=== PATIENT | female | born 1970 | race Caucasian/White ===

== ENCOUNTER 2021-09-15 10:06 | Inpatient (IN) | payer MEDICAID ==
[~2021-09-15] VITALS: Ht 160 cm; Wt 65.9 kg
[~2021-09-15 10:06] MED LIST: ALBU18HF2 INH; TRIA15CR62 TP; [UNRECOGNIZED DRUG - OTHER] SQ
[2021-09-15] MEDS ORDERED: normal saline 1000ML IV soln IV ONE (10:25)
[2021-09-15] MEDS ORDERED: morphine 4 MG/ML inj SYRINge IV ONE (10:40)
[2021-09-15] MEDS ORDERED: iohexol 300mg/ml 100ml inj. ONE (10:48)
[2021-09-15 10:59] LABS: BASOPHILS % (AUTO) 0.3 % (0-1); EOSINOPHILS # (AUTO) 0.4 X10'3 (0-0.9); EOSINOPHILS % (AUTO) 2.7 % (0-6); HEMATOCRIT 40.2 % (35.0-45.0); HEMOGLOBIN 13.6 g/dl (12.0-16.0); LYMPHOCYTES # (AUTO) 1.1 X10'3 (1.1-4.8); LYMPHOCYTES % (AUTO) 7.9 % (21-51); MEAN CORPUSCULAR HEMOGLOBIN 33.3 PG (27.0-31.0); MEAN CORPUSCULAR HGB CONC 33.8 g/dL (33.0-36.5); MEAN CORPUSCULAR VOLUME 98.5 FL (78-98); MEAN PLATELET VOLUME 6.5 FL (7.4-10.4); MONOCYTES # (AUTO) 1.4 X10'3 (0-0.9); MONOCYTES % (AUTO) 10.8 % (2-12); NEUTROPHILS # (AUTO) 10.5 X10'3 (1.8-7.7); NEUTROPHILS % (AUTO) 78.3 % (42-75); PLATELET COUNT 468 X10'3 (140-440); RED BLOOD COUNT 4.08 X10'6 (4.20-5.60); RED CELL DISTRIBUTION WIDTH 13.3 % (11.5-14.5); WHITE BLOOD COUNT 13.4 X10'3 (4.5-11.0)
[2021-09-15 11:22] LABS: ALBUMIN 1.7 G/DL (3.4-5.0); BILIRUBIN,TOTAL 0.2 MG/DL (0.1-1.0); CALCIUM 8.2 MG/DL (8.5-10.1); CHLORIDE 102 MMOL/L (99-107); GLUCOSE 137 MG/DL (70-104); MAGNESIUM 1.8 MG/DL (1.5-2.4); POTASSIUM 3.7 MMOL/L (3.5-5.1); SODIUM 136 MMOL/L (135-145)
[2021-09-15 11:23] LABS: ALANINE AMINOTRANSFERASE 26 U/L (12-78); ALBUMIN/GLOBULIN RATIO 0.3 (1.1-1.5); ALKALINE PHOSPHATASE 93 IU/L (46-116); ASPARTATE AMINO TRANSFERASE 26 U/L (10-37)
[2021-09-15 11:24] LABS: ANION GAP 10 (8-16); TOTAL CARBON DIOXIDE 23.8 MMOL/L (24-32)
[2021-09-15 11:29] LABS: BLOOD UREA NITROGEN 1 MG/DL (7-18); CREATININE 0.55 MG/DL (0.40-0.90); eGFR > 90 ML/MIN
[2021-09-15 11:30] LABS: BUN/CREATININE RATIO 1.8 (6.6-38.0)
[2021-09-15 11:37] LABS: CLARITY,URINE CLEAR (Clear); GLUCOSE, URINE NEGATIVE (Neg); KETONES,URINE NEGATIVE (Neg); LEUKOCYTE ESTERASE ,URINE NEGATIVE (Neg); NITRITES, URINE NEGATIVE (Neg); OCCULT BLOOD,URINE LARGE (Neg); PH,URINE 5.5 (4.8-8.0); PROTEIN,URINE NEGATIVE (Neg); UROBILINOGEN,URINE 0.2 E.U/dL (0.2-1.0)
[2021-09-15 11:38] LABS: URINE HCG NEGATIVE (NEG)
[2021-09-15 11:41] LABS: COLOR,URINE STRAW (Yellow); UA COLLECTION TYPE NON-SPECIFIED
[2021-09-15 11:42] LABS: BACTERIA,URINE FEW /HPF (Neg); MUCUS STRANDS FEW /LPF (Neg); RBC,URINE 20-50 /HPF (0-2); SQUAMOUS EPITHELIAL CELL,UR FEW /LPF (FEW); WBC,URINE 0-4 /HPF (0-4)
[2021-09-15] MEDS ORDERED: vancomycin/NS 1 GM ADD-VANTAGE 250 ML IV ONE (11:45)
[2021-09-15] MEDS ORDERED: piperacillin/tazo 3.375gm/50ml 50 ML IV ONE (11:45)
[2021-09-15] MEDS ORDERED: bisacodyl 10mg suppository rectal RC PRN (14:25)
[2021-09-15] MEDS ORDERED: HYDROcodone/acetaminophen 10/325mg tab PO PRN (14:25)
[2021-09-15] MEDS ORDERED: acetaminophen 325mg tablet PO PRN ×2 (14:25)
[2021-09-15] MEDS ORDERED: ondansetron 4mg rapidly disintigrating tab PO PRN (14:25)
[2021-09-15] MEDS ORDERED: magnesium hydroxide 30ml (MOM) UD suspension PO PRN (14:25)
[2021-09-15] MEDS ORDERED: magnesium Cl slow-release 64mg tablet PO PRN (14:25)
[2021-09-15] MEDS ORDERED: HYDROmorphone/PF 0.2 MG/ML SYRINGE IV PRN (14:25)
[2021-09-15] MEDS ORDERED: potassium Cl 20 mEq SR tablet PO PRN ×2 (14:25)
[2021-09-15] MEDS ORDERED: magnesium 2GM in 50ml NS 50 ML IV PRN (14:25)
[2021-09-15] MEDS ORDERED: metoclopramide 5 mg/ml inj IV PRN (14:25)
[2021-09-15] MEDS ORDERED: potassium CL 10mEq/100ml bag 100 ML IV PRN (14:25)
[2021-09-15] MEDS ORDERED: magnesium 4gm in 100ml NS 100 ML IV PRN (14:25)
[2021-09-15] MEDS: normal saline 1000ml 1,000 ML IV SCH ×2 (14:25→23:23)
[2021-09-15] MEDS ORDERED: HYDROcodone/acetaminophen 5mg/325mg tablet PO PRN (14:25)
[2021-09-15] MEDS ORDERED: mag hydrox/Alum hydrox/simeth 30ml oral suspension PO PRN (14:25)
[2021-09-15] MEDS ORDERED: HYDROmorphone inj. 0.5 MG/0.5 ML DISP.SYRIN IV PRN (14:25)
[2021-09-15] MEDS ORDERED: ondansetron/PF 4mg/2ml inj IV PRN (14:25)
[2021-09-15] MEDS ORDERED: tetanus & diphtheria toxoid (Td) vaccine 0.5ml IMVAC ONE (15:30)
--- NOTE | 2021-09-15 15:41 | NUR ---
tried to call report, RN at lunch
[2021-09-15] MEDS ORDERED: piperacillin/tazo 3.375gm/50ml 50 ML IV SCH (16:00)
--- NOTE | 2021-09-15 16:14 | NUR ---
tried to call for report to ER no answer
--- NOTE | 2021-09-15 16:31 | NUR ---
pt states she has had a Tetnus shot within the last five years
[2021-09-15] MEDS ORDERED: ipratropium/albuterol 3ml nebule NEB PRN (17:55)
[2021-09-15] MEDS: predniSONE 20 mg tablet PO SCH (18:12)
--- NOTE | 2021-09-15 18:15 | NUR ---
patient seen by DR Devine EKG ordered and prednisone to be given tonight will continue to monitor
--- NOTE | 2021-09-15 18:31 | NUR ---
Problems reprioritized. Patient report given, questions answered & plan of care reviewed with duran MORENO.
[2021-09-15 18:40] VITALS: BP 133/77
[2021-09-15] MEDS: ipratropium/albuterol 3ml nebule NEB SCH ×2 (19:00→23:00)
[2021-09-15] MEDS: heparin, porcine 5000 units/ml vial SQ SCH (19:47)
[2021-09-15] MEDS: K and/or MAG REPLACEMENT MC SCH (19:48)
[2021-09-15] MEDS: docusate sod 100mg capsule PO SCH (19:48)
[2021-09-15 20:00] VITALS: BP 141/58
[2021-09-15] MEDS: piperacillin/tazo 3.375gm/50ml 50 ML IV SCH (22:26)
[2021-09-15] MEDS: vancomycin/NS 1 GM ADD-VANTAGE 250 ML IV SCH (23:23)
[2021-09-15 23:36] VITALS: BP 121/58
[2021-09-16] MEDS: temazepam 15mg capsule PO PRN (01:14)
[2021-09-16] MEDS: ipratropium/albuterol 3ml nebule NEB SCH ×5 (03:00→22:39)
[2021-09-16] MEDS: piperacillin/tazo 3.375gm/50ml 50 ML IV SCH ×3 (03:38→19:52)
[2021-09-16 06:01] LABS: BASOPHILS % (AUTO) 0.1 % (0-1); EOSINOPHILS % (AUTO) 0.1 % (0-6); HEMATOCRIT 32.3 % (35.0-45.0); HEMOGLOBIN 10.9 g/dl (12.0-16.0); LYMPHOCYTES # (AUTO) 0.6 X10'3 (1.1-4.8); LYMPHOCYTES % (AUTO) 7.2 % (21-51); MEAN CORPUSCULAR HEMOGLOBIN 32.9 PG (27.0-31.0); MEAN CORPUSCULAR HGB CONC 33.6 g/dL (33.0-36.5); MEAN PLATELET VOLUME 6.3 FL (7.4-10.4); MONOCYTES # (AUTO) 0.4 X10'3 (0-0.9); MONOCYTES % (AUTO) 4.3 % (2-12); NEUTROPHILS # (AUTO) 7.8 X10'3 (1.8-7.7); NEUTROPHILS % (AUTO) 88.3 % (42-75); PLATELET COUNT 351 X10'3 (140-440); RED CELL DISTRIBUTION WIDTH 13.4 % (11.5-14.5); WHITE BLOOD COUNT 8.8 X10'3 (4.5-11.0)
[2021-09-16 06:20] LABS: ALANINE AMINOTRANSFERASE 26 U/L (12-78); ALBUMIN 1.3 G/DL (3.4-5.0); ALBUMIN/GLOBULIN RATIO 0.3 (1.1-1.5); ALKALINE PHOSPHATASE 92 IU/L (46-116); ANION GAP 6 (8-16); ASPARTATE AMINO TRANSFERASE 33 U/L (10-37); BILIRUBIN,TOTAL 0.2 MG/DL (0.1-1.0); BLOOD UREA NITROGEN 2 MG/DL (7-18); BUN/CREATININE RATIO 5.1 (6.6-38.0); CALCIUM 6.9 MG/DL (8.5-10.1); CHLORIDE 109 MMOL/L (99-107); CREATININE 0.39 MG/DL (0.40-0.90); GLUCOSE 114 MG/DL (70-104); MAGNESIUM 1.7 MG/DL (1.5-2.4); POTASSIUM 3.6 MMOL/L (3.5-5.1); SODIUM 139 MMOL/L (135-145); TOTAL CARBON DIOXIDE 23.7 MMOL/L (24-32); TOTAL PROTEIN 6.5 G/DL (6.4-8.2); eGFR > 90 ML/MIN
--- NOTE | 2021-09-16 06:34 | NUR ---
Problems reprioritized. Patient report given, questions answered & plan of care reviewed with MARCELL MORENO.
[2021-09-16] MEDS: docusate sod 100mg capsule PO SCH ×2 (07:41→19:53)
[2021-09-16] MEDS: predniSONE 20 mg tablet PO SCH (07:41)
[2021-09-16] MEDS: heparin, porcine 5000 units/ml vial SQ SCH ×2 (07:41→19:54)
[2021-09-16] MEDS: nicotine 14mg patch - 24hr TD SCH (07:42)
[2021-09-16 08:00] VITALS: BP 146/95
[2021-09-16] MEDS: K and/or MAG REPLACEMENT MC SCH ×2 (08:00→19:54)
[2021-09-16] MEDS ORDERED: LIDOcaine 1% (10mg/ml)w/preservative inj. 20ml MDV ONE (10:20)
[2021-09-16] MEDS: normal saline 1000ml 1,000 ML IV SCH (10:25)
[2021-09-16 11:00] VITALS: BP 160/86
[2021-09-16] MEDS: vancomycin/NS 1 GM ADD-VANTAGE 250 ML IV SCH (12:32)
--- NOTE | 2021-09-16 16:51 | NUR ---
PAGER ID: [phone] MESSAGE: [phone]. Patient drinking plenty PO fluids, does she still need IVF? Caroline MORENO 1978
--- NOTE | 2021-09-16 17:55 | NUR ---
Problems reprioritized. Patient report given, questions answered & plan of care reviewed with Nicholas MORENO.
--- NOTE | 2021-09-16 18:20 | NUR ---
Patient in room [facility] 346. I have received report from MARCELL MORENO and had the opportunity to ask questions and assume patient care.
[2021-09-16 20:00] VITALS: BP 132/72
[2021-09-16] MEDS: amLODIPine 5mg tablet PO SCH (21:00)
[2021-09-16] MEDS ORDERED: VANCOMYCIN LEVEL IV ONE (23:30)
[2021-09-17] VITALS: BP 140/74
[2021-09-17] MEDS: vancomycin/NS 1 GM ADD-VANTAGE 250 ML IV SCH ×2 (00:07→12:00)
[2021-09-17] MEDS: temazepam 15mg capsule PO PRN (00:07)
[2021-09-17] MEDS: ipratropium/albuterol 3ml nebule NEB SCH ×4 (03:00→14:46)
--- NOTE | 2021-09-17 06:24 | NUR ---
Problems reprioritized. Patient report given, questions answered & plan of care reviewed with MARCELL.
[2021-09-17 07:01] LABS: BASOPHILS % (AUTO) 0.4 % (0-1); EOSINOPHILS # (AUTO) 0.1 X10'3 (0-0.9); EOSINOPHILS % (AUTO) 1.1 % (0-6); LYMPHOCYTES # (AUTO) 1.2 X10'3 (1.1-4.8); LYMPHOCYTES % (AUTO) 13.2 % (21-51); MEAN CORPUSCULAR HEMOGLOBIN 33.5 PG (27.0-31.0); MEAN CORPUSCULAR HGB CONC 34.4 g/dL (33.0-36.5); MEAN CORPUSCULAR VOLUME 97.3 FL (78-98); MEAN PLATELET VOLUME 6.7 FL (7.4-10.4); MONOCYTES # (AUTO) 0.9 X10'3 (0-0.9); MONOCYTES % (AUTO) 10.4 % (2-12); NEUTROPHILS # (AUTO) 6.8 X10'3 (1.8-7.7); NEUTROPHILS % (AUTO) 74.9 % (42-75); PLATELET COUNT 370 X10'3 (140-440); RED BLOOD COUNT 3.29 X10'6 (4.20-5.60); RED CELL DISTRIBUTION WIDTH 13.4 % (11.5-14.5); WHITE BLOOD COUNT 9.1 X10'3 (4.5-11.0)
[2021-09-17 07:11] LABS: ALANINE AMINOTRANSFERASE 25 U/L (12-78); ALBUMIN 1.4 G/DL (3.4-5.0); ALBUMIN/GLOBULIN RATIO 0.3 (1.1-1.5); ALKALINE PHOSPHATASE 79 IU/L (46-116); ANION GAP 6 (8-16); ASPARTATE AMINO TRANSFERASE 36 U/L (10-37); BILIRUBIN,TOTAL 0.2 MG/DL (0.1-1.0); BLOOD UREA NITROGEN 4 MG/DL (7-18); BUN/CREATININE RATIO 7.3 (6.6-38.0); CALCIUM 7.7 MG/DL (8.5-10.1); CHLORIDE 108 MMOL/L (99-107); CREATININE 0.55 MG/DL (0.40-0.90); GLUCOSE 85 MG/DL (70-104); MAGNESIUM 1.9 MG/DL (1.5-2.4); POTASSIUM 3.6 MMOL/L (3.5-5.1); SODIUM 140 MMOL/L (135-145); TOTAL CARBON DIOXIDE 26.5 MMOL/L (24-32); TOTAL PROTEIN 6.6 G/DL (6.4-8.2); eGFR > 90 ML/MIN
[2021-09-17] MEDS: amLODIPine 5mg tablet PO SCH (07:49)
[2021-09-17] MEDS: nicotine 14mg patch - 24hr TD SCH (07:50)
[2021-09-17] MEDS: heparin, porcine 5000 units/ml vial SQ SCH (07:50)
[2021-09-17] MEDS ORDERED: predniSONE 20 mg tablet PO SCH (08:00)
[2021-09-17] MEDS: K and/or MAG REPLACEMENT MC SCH (08:00)
[2021-09-17 08:36] VITALS: BP 148/81
[2021-09-17 11:53] VITALS: BP 140/78
[2021-09-17] MEDS ORDERED: PRED20TA PO (12:59)
[2021-09-17] MEDS ORDERED: DOXY-243 PO (12:59)
[2021-09-17] MEDS ORDERED: NICO-631 TD (12:59)
[2021-09-17] MEDS ORDERED: NOR5T PO (13:00)
--- NOTE | 2021-09-17 13:53 | NUR ---
Discharge paperwork reviewed with patient. Belongings sent with patient. IV removed, catheter tip intact. Patient free from injuries.
--- NOTE | 2021-09-17 16:19 | NUR ---
PAGER ID: [phone] MESSAGE: [phone]. Pharmacy called saying doxycycline is only approved for acne and if you would like to prescribe something else. Caroline MORENO [id number]
--- NOTE | 2021-09-17 16:21 | NUR ---
Attempted to call Arsenio olmedo at [facility] pharmacy regarding doxycycline medication. I called twice and was sent to their automated voice system both times. Will attempt to call again.
--- NOTE | 2021-09-17 16:26 | NUR ---
Spoke to Jane regarding doxycycline at [facility], she is aware of the situation.
[2021-09-18] MEDS ORDERED: VANCOmycin 1250MG/NS 250ml Bag 250 ML IV SCH
[2021-09-19] MEDS ORDERED: VANCOMYCIN LEVEL IV ONE (11:30)
== END 2021-09-17 14:41 | disposition home or self-care (01) | DRG 385 ==
LOC: ER 10:06 → ED HOLD 14:29 → SUR 3N 16:40
PROVIDERS: ADMIT Family Medicine; ATTEND Family Medicine
PROC: BW241ZZ Computerized Tomography (CT Scan) of Chest and Abdomen using Low Osmolar Contrast (ICD-10-PCS; principal; 2021-09-15)
DX: N61.1 Abscess of the breast and nipple (principal); J45.901 Unspecified asthma with (acute) exacerbation; G89.29 Other chronic pain; M54.9 Dorsalgia, unspecified; R00.2 Palpitations; F17.210 Nicotine dependence, cigarettes, uncomplicated; Z20.822 Contact with and (suspected) exposure to COVID-19; L30.9 Dermatitis, unspecified; I10 Essential (primary) hypertension; Z71.6 Tobacco abuse counseling; Z88.2 Allergy status to sulfonamides; Z88.8 Allergy status to other drugs, medicaments and biological substances; Z90.49 Acquired absence of other specified parts of digestive tract
CPT/HCPCS: 36415; 71260; 76642; 80053; 80202; 81001; 81025; 83605; 83735; 84145; 84443; 85025; 85610; 87040; 87081; 87635; 90715; 93005; 94640; 94760; 96361; 96365; 96368; 96375; 99285; C9803; G0378; J1644; J2270; J2543; J3370; J3490; J7030; J7512; Q9967

== ENCOUNTER 2022-05-30 15:32 | Outpatient (CLI) | payer MEDICAID ==
[~2022-05-30] VITALS: Ht 160 cm; Wt 55.3 kg
[~2022-05-30 15:32] MED LIST changes: +NICO-631 TD; +NOR5T PO; +PRED20TA PO; -TRIA15CR62 TP; -[UNRECOGNIZED DRUG - OTHER] SQ
[2022-05-30] MEDS ORDERED: albuterol 2.5 MG/3 ML nebule NEB ONE (16:00)
== END 2022-05-30 23:59 | disposition home or self-care (01) ==
LOC: RT 15:32
PROVIDERS: ATTEND Family Medicine
DX: J45.998 Other asthma (principal); J44.9 Chronic obstructive pulmonary disease, unspecified
CPT/HCPCS: 94060; 94760

== ENCOUNTER 2022-10-03 10:43 | Day surgery (SDC) | payer MEDICAID ==
[2022-09-30 15:15] LABS: BASOPHILS % (AUTO) 0.6 % (0-1); EOSINOPHILS # (AUTO) 0.4 X10'3 (0-0.9); EOSINOPHILS % (AUTO) 5.1 % (0-6); LYMPHOCYTES # (AUTO) 0.9 X10'3 (1.1-4.8); LYMPHOCYTES % (AUTO) 11.6 % (21-51); MEAN CORPUSCULAR HEMOGLOBIN 33.1 PG (27.0-31.0); MEAN CORPUSCULAR HGB CONC 33.3 g/dL (33.0-36.5); MEAN CORPUSCULAR VOLUME 99.5 FL (78-98); MEAN PLATELET VOLUME 7.5 FL (7.4-10.4); MONOCYTES % (AUTO) 13.1 % (2-12); NEUTROPHILS # (AUTO) 5.2 X10'3 (1.8-7.7); NEUTROPHILS % (AUTO) 69.6 % (42-75); PRE OP HEMATOCRIT 44.8 % (35.0-45.0); PRE OP HEMOGLOBIN 14.9 g/dL (12.0-16.0); PRE OP PLATELET COUNT 284 X10'3 (140-440); RED CELL DISTRIBUTION WIDTH 14.2 % (11.5-14.5)
[2022-09-30 15:19] LABS: ALBUMIN 3.3 G/DL (3.4-5.0); ALBUMIN/GLOBULIN RATIO 0.7 (1.1-1.5); ALKALINE PHOSPHATASE 88 IU/L (46-116); BLOOD UREA NITROGEN 4 MG/DL (7-18); BUN/CREATININE RATIO 6.5 (10.0-20.0); CALCIUM 9.1 MG/DL (8.5-10.1); CHLORIDE 103 MMOL/L (99-107); CREATININE 0.62 MG/DL (0.40-0.90); PRE OP ALT 52 U/L (30-65); PRE OP ANION GAP 8 (8-16); PRE OP AST 67 U/L (10-37); PRE OP BILIRUB, TOTAL 0.3 MG/DL (0.0-1.0); PRE OP GLUCOSE 94 MG/DL (70-104); PRE OP SODIUM 138 MMOL/L (135-145); TOTAL CARBON DIOXIDE 27.5 MMOL/L (24-32); TOTAL PROTEIN 8.2 G/DL (6.4-8.2); eGFR > 90 ML/MIN
[2022-10-03] VITALS (11 sets, daily range): BP systolic 117–152; BP diastolic 63–92
[~2022-10-03] VITALS: Ht 160 cm; Wt 56.7 kg
[~2022-10-03 10:43] MED LIST changes: +BUDE10.26 PO; -NICO-631 TD; -NOR5T PO; -PRED20TA PO; +RUXO60CR TOP; +cefazolin 2gm/D5W 100mL 100 ML IV ONE; +famotidine 20mg tablet PO ONE; +ringers solution, lacted 1,000 ML IV SCH
--- NOTE | 2022-10-03 11:51 | NUR ---
PATIENTS SPOUSE PASSED OF CANCER November. PATIENT LOST WEIGHT DURING THE GRIEF 10-15 LBS AND REGAINED 5 OF IT. Addendum: 10/03/22 at 1153 by Buddy Sheridan RN, RN Amended: Links added.
[2022-10-03] MEDS ORDERED: BUPIVAcaine/PF 2.5mg/ml (0.25%) 10ml vial ONE ×2 (12:51→13:23)
[2022-10-03] MEDS ORDERED: methylene blue (5mg/ml) 50mg/10ml ampul IV ONE (12:51)
[2022-10-03] MEDS ORDERED: dexamethasone sod phosphate 10mg/ml inj ONE (13:01)
[2022-10-03] MEDS ORDERED: dexmedetomidine 200mcg/2ml inj. IV ONE (13:01)
[2022-10-03] MEDS ORDERED: sevoflurane 250ml liquid IH ONE (13:01)
[2022-10-03] MEDS ORDERED: propofol inj 20 ML IV ONE (13:19)
[2022-10-03] MEDS ORDERED: ondansetron/PF 4mg/2ml inj ONE (13:19)
[2022-10-03] MEDS ORDERED: LIDOcaine 2% (20mg/ml) 5ml vial ONE (13:19)
[2022-10-03] MEDS ORDERED: fentaNYL/PF 50MCG/1 ML 2ML syringe ONE ×3 (13:20→14:32)
[2022-10-03] MEDS ORDERED: MIDAZolam 1 MG/ML 5ML VIAL ONE (13:23)
[2022-10-03] MEDS ORDERED: acetaminophen 1,000mg/100ml IV 100 ML IV ONE (13:54)
[2022-10-03] MEDS ORDERED: HYDROmorphone 1 mg/ml syringe ONE (14:11)
[2022-10-03] MEDS ORDERED: ketorolac trometh. 30mg/ml inj. ONE (14:24)
[2022-10-03] MEDS ORDERED: HYDROmorphone/PF 0.2 MG/ML SYRINGE IV PRN ×2 (14:25)
[2022-10-03] MEDS ORDERED: hydrALAZINE 20mg/ml inj. IV PRN (14:25)
[2022-10-03] MEDS ORDERED: ringers solution, lacted 1,000 ML IV SCH (14:25)
[2022-10-03] MEDS ORDERED: labetalol 20mg/4ml (5mg/ml) syringe IV PRN (14:25)
[2022-10-03] MEDS ORDERED: morphine 2 MG/ML inj. syringe IV PRN (14:25)
[2022-10-03] MEDS ORDERED: ondansetron/PF 4mg/2ml inj IV PRN (14:25)
[2022-10-03] MEDS ORDERED: morphine 4 MG/ML inj SYRINge IV PRN (14:25)
--- NOTE | 2022-10-03 15:35 | NUR ---
Received from OR via JACKIE IN STABLE CONDITION , accompanied by Anesthesiologist and RUG CUTTER HELPER report given by RUG CUTTER HELPER AND Anesthesiolgist. Addendum: 10/03/22 at 1555 by Sulma Moncada RN Amended: Links added.
--- NOTE | 2022-10-03 17:15 | NUR ---
PATIENT DISCHARGED FROM PACU IN STABLE CONDITION AFTER WRITTEN AND VERBAL DISCHARGE INSTRUCTIONS GIVEN. PATIENT GAVE VERBAL UNDERSTANDING OF INSTRUCTIONS GIVEN. PATIENT LEFT FACILITY VIA WHEELCHAIR WITH RN. Addendum: 10/03/22 at 1739 by Sulma Moncada RN Amended: Links added.
== END 2022-10-03 17:15 | disposition home or self-care (01) ==
LOC: PRE-OP 10:43
PROVIDERS: ATTEND Surgery
DX: C50.412 Malignant neoplasm of upper-outer quadrant of left female breast (principal); J44.9 Chronic obstructive pulmonary disease, unspecified; F17.290 Nicotine dependence, other tobacco product, uncomplicated; Z88.2 Allergy status to sulfonamides; Z88.8 Allergy status to other drugs, medicaments and biological substances; Z79.899 Other long term (current) drug therapy; Z72.89 Other problems related to lifestyle
CPT/HCPCS: 19301; 36415; 38500; 38525; 38900; 76998; 80053; 82948; 85025; 93005; J0131; J0690; J1170; J1885; J2250; J2405; J2704; J3010; J3490; J7030; J7120; Q9968; Z7506; Z7508; Z7512; A4215; A4618; A6258; A6446; A7000; J1100

== ENCOUNTER 2022-10-10 23:55 | Emergency (ER) | payer MEDICAID ==
[~2022-10-10] VITALS: Ht 160 cm; Wt 57.4 kg
[~2022-10-10 23:55] MED LIST changes: +BUDE10.26 IH; -BUDE10.26 PO; -cefazolin 2gm/D5W 100mL 100 ML IV ONE; -famotidine 20mg tablet PO ONE; -ringers solution, lacted 1,000 ML IV SCH
[2022-10-11 00:03] VITALS: BP 136/65
[2022-10-11] MEDS ORDERED: IPRA3AMP31 NEB (13:38)
[2022-10-11] MEDS ORDERED: METO-395 PO (13:41)
== END 2022-10-11 01:50 | disposition left against medical advice (07) ==
LOC: ER 23:55
DX: N64.4 Mastodynia (principal); Z53.21 Procedure and treatment not carried out due to patient leaving prior to being seen by health care provider
CPT/HCPCS: 99281

== ENCOUNTER 2022-10-11 10:24 | Inpatient (IN) | payer MEDICAID ==
[~2022-10-11] VITALS: Ht 160 cm; Wt 56.2 kg
[2022-10-11] MEDS ORDERED: piperacillin/tazo 3.375gm/50ml 50 ML IV ONE (11:00)
[2022-10-11] MEDS ORDERED: vancomycin/NS 1 GM ADD-VANTAGE 250 ML IV ONE (11:35)
[2022-10-11] MEDS ORDERED: magnesium Cl slow-release 64mg tablet PO PRN (11:50)
[2022-10-11] MEDS ORDERED: potassium Cl 20 mEq SR tablet PO PRN (11:50)
[2022-10-11] MEDS ORDERED: mag hydrox/Alum hydrox/simeth 30ml oral suspension PO PRN (11:50)
[2022-10-11] MEDS ORDERED: acetaminophen 650mg rectal suppository RC PRN (11:50)
[2022-10-11] MEDS ORDERED: HYDROcodone/acetaminophen 10/325mg tab PO PRN (11:50)
[2022-10-11] MEDS ORDERED: bisacodyl 10mg suppository rectal RC PRN (11:50)
[2022-10-11] MEDS ORDERED: potassium Cl 40MEQ/1/2NS 520ml 520 ML IV PRN (11:50)
[2022-10-11] MEDS ORDERED: ondansetron/PF 4mg/2ml inj IV PRN (11:50)
[2022-10-11] MEDS ORDERED: magnesium 4gm in 100ml NS 100 ML IV PRN (11:50)
[2022-10-11] MEDS ORDERED: magnesium hydroxide 30ml (MOM) UD suspension PO PRN (11:50)
[2022-10-11] MEDS ORDERED: morphine 2 MG/ML inj. syringe IV PRN ×2 (11:50)
[2022-10-11] MEDS ORDERED: magnesium 2GM in 50ml NS 50 ML IV PRN (11:50)
[2022-10-11] MEDS ORDERED: acetaminophen 325mg tablet PO PRN (11:50)
[2022-10-11 12:13] LABS: BASOPHILS % (AUTO) 0.2 % (0-1); EOSINOPHILS # (AUTO) 0.1 X10'3 (0-0.9); EOSINOPHILS % (AUTO) 0.6 % (0-6); HEMATOCRIT 40.1 % (35.0-45.0); HEMOGLOBIN 13.6 g/dl (12.0-16.0); LYMPHOCYTES # (AUTO) 0.5 X10'3 (1.1-4.8); LYMPHOCYTES % (AUTO) 3.7 % (21-51); MEAN CORPUSCULAR HEMOGLOBIN 33.5 PG (27.0-31.0); MEAN CORPUSCULAR HGB CONC 33.8 g/dL (33.0-36.5); MEAN PLATELET VOLUME 7.3 FL (7.4-10.4); MONOCYTES # (AUTO) 1.7 X10'3 (0-0.9); MONOCYTES % (AUTO) 12.1 % (2-12); NEUTROPHILS % (AUTO) 83.4 % (42-75); PLATELET COUNT 317 X10'3 (140-440); RED BLOOD COUNT 4.05 X10'6 (4.20-5.60); RED CELL DISTRIBUTION WIDTH 13.8 % (11.5-14.5); WHITE BLOOD COUNT 14.4 X10'3 (4.5-11.0)
[2022-10-11] MEDS: normal saline 1000ml 1,000 ML IV SCH ×2 (13:00→21:50)
[2022-10-11 13:10] LABS: ALANINE AMINOTRANSFERASE 24 U/L (12-78); ALBUMIN 2.6 G/DL (3.4-5.0); ALBUMIN/GLOBULIN RATIO 0.5 (1.1-1.5); ALKALINE PHOSPHATASE 103 IU/L (46-116); ANION GAP 13 (8-16); ASPARTATE AMINO TRANSFERASE 19 U/L (10-37); BILIRUBIN,TOTAL 0.4 MG/DL (0.1-1.0); BLOOD UREA NITROGEN 5 MG/DL (7-18); BUN/CREATININE RATIO 8.5 (10.0-20.0); CALCIUM 9.1 MG/DL (8.5-10.1); CHLORIDE 94 MMOL/L (99-107); CREATININE 0.59 MG/DL (0.40-0.90); GLUCOSE 102 MG/DL (70-104); MAGNESIUM 2.1 MG/DL (1.5-2.4); POTASSIUM 4.1 MMOL/L (3.5-5.1); SODIUM 130 MMOL/L (135-145); TOTAL CARBON DIOXIDE 22.9 MMOL/L (24-32); TOTAL PROTEIN 7.6 G/DL (6.4-8.2); eGFR > 90 ML/MIN
[2022-10-11] MEDS ORDERED: IPRA3AMP31 NEB (13:38)
[2022-10-11] MEDS ORDERED: METO-395 PO (13:41)
[2022-10-11] MEDS: piperacillin/tazo 3.375gm/50ml 50 ML IV SCH (16:00)
--- NOTE | 2022-10-11 17:38 | NUR ---
Dr. Mcdonough here to see pt
--- NOTE | 2022-10-11 18:07 | NUR ---
Pt drsgs changed and new dr[facility] breast on. Wound culture taken per VO Dr. Jerez while here seeing pt.
--- NOTE | 2022-10-11 19:24 | NUR ---
Patient in room . I have received report from MEIR MORENO in ER and had the opportunity to ask questions and assume patient care.
[2022-10-11 20:00] VITALS: BP 154/76
[2022-10-11] MEDS: K and/or MAG REPLACEMENT MC SCH (20:00)
[2022-10-11] MEDS: docusate sod 100mg capsule PO SCH (20:00)
[2022-10-11] MEDS: heparin, porcine 5000 units/ml vial SQ SCH (21:43)
[2022-10-11 22:00] VITALS: BP 122/63
[2022-10-11] MEDS: diphenhydrAMINE 25mg capsule PO PRN (22:42)
[2022-10-12] VITALS (19 sets, daily range): BP systolic 91–189; BP diastolic 55–102
[2022-10-12] MEDS: vancomycin/NS 1 GM ADD-VANTAGE 250 ML IV SCH ×2 (00:06→13:27)
[2022-10-12] MEDS: piperacillin/tazo 3.375gm/50ml 50 ML IV SCH ×3 (00:12→18:01)
[2022-10-12 04:48] LABS: BASOPHILS % (AUTO) 0.2 % (0-1); EOSINOPHILS # (AUTO) 0.6 X10'3 (0-0.9); EOSINOPHILS % (AUTO) 6.8 % (0-6); HEMATOCRIT 35.7 % (35.0-45.0); LYMPHOCYTES # (AUTO) 0.6 X10'3 (1.1-4.8); LYMPHOCYTES % (AUTO) 6.7 % (21-51); MEAN CORPUSCULAR HEMOGLOBIN 33.2 PG (27.0-31.0); MEAN CORPUSCULAR HGB CONC 33.5 g/dL (33.0-36.5); MEAN CORPUSCULAR VOLUME 99.1 FL (78-98); MEAN PLATELET VOLUME 7.1 FL (7.4-10.4); MONOCYTES # (AUTO) 0.9 X10'3 (0-0.9); MONOCYTES % (AUTO) 11.5 % (2-12); NEUTROPHILS # (AUTO) 6.1 X10'3 (1.8-7.7); NEUTROPHILS % (AUTO) 74.8 % (42-75); PLATELET COUNT 300 X10'3 (140-440); RED CELL DISTRIBUTION WIDTH 13.4 % (11.5-14.5); WHITE BLOOD COUNT 8.2 X10'3 (4.5-11.0)
[2022-10-12 04:56] LABS: ALANINE AMINOTRANSFERASE 18 U/L (12-78); ALBUMIN 2.1 G/DL (3.4-5.0); ALBUMIN/GLOBULIN RATIO 0.5 (1.1-1.5); ALKALINE PHOSPHATASE 80 IU/L (46-116); ANION GAP 10 (8-16); ASPARTATE AMINO TRANSFERASE 12 U/L (10-37); BILIRUBIN,TOTAL 0.3 MG/DL (0.1-1.0); BLOOD UREA NITROGEN 6 MG/DL (7-18); BUN/CREATININE RATIO 12.2 (10.0-20.0); CALCIUM 8.5 MG/DL (8.5-10.1); CHLORIDE 101 MMOL/L (99-107); CHOLESTEROL 104 MG/DL (0-200); CREATININE 0.49 MG/DL (0.40-0.90); GLUCOSE 101 MG/DL (70-104); HDL CHOLESTEROL 53 MG/DL (35-60); LDL CHOLESTEROL 33 MG/DL (50-100); MAGNESIUM 2.1 MG/DL (1.5-2.4); POTASSIUM 3.4 MMOL/L (3.5-5.1); SODIUM 136 MMOL/L (135-145); TOTAL CARBON DIOXIDE 25.5 MMOL/L (24-32); TOTAL PROTEIN 6.5 G/DL (6.4-8.2); TRIGLYCERIDES 62 MG/DL (20-135); eGFR > 90 ML/MIN
--- NOTE | 2022-10-12 06:20 | NUR ---
CLARIBEL Medication Administration: For this medication-pass time frame, all medication were reviewed, dispensed, administered and documented per hospital policy by GARRETT SANFORD .
--- NOTE | 2022-10-12 06:20 | NUR ---
OFFICE ADMINISTRATION documentation: I have reviewed and agree with all interventions, assessments performed and documented by GARRETT SANFORD .
--- NOTE | 2022-10-12 06:33 | NUR ---
Problems reprioritized. Patient report given TO SALOME MORENO, questions answered & plan of care reviewed with .
[2022-10-12] MEDS: docusate sod 100mg capsule PO SCH ×3 (08:00→19:20)
[2022-10-12] MEDS: heparin, porcine 5000 units/ml vial SQ SCH ×2 (08:00→19:21)
[2022-10-12] MEDS: diphenhydrAMINE 25mg capsule PO PRN (09:53)
[2022-10-12] MEDS: potassium Cl 20 mEq SR tablet PO PRN ×2 (09:53→20:16)
[2022-10-12] MEDS: acetaminophen 325mg tablet PO PRN ×2 (09:54→23:39)
[2022-10-12] MEDS: K and/or MAG REPLACEMENT MC SCH ×2 (09:55→20:16)
[2022-10-12] MEDS: normal saline 1000ml 1,000 ML IV SCH ×2 (09:55→17:50)
[2022-10-12] MEDS ORDERED: albuterol 2.5 MG/3 ML nebule NEB SCH (12:05)
[2022-10-12] MEDS ORDERED: morphine 2 MG/ML inj. syringe IV PRN (14:05)
[2022-10-12] MEDS ORDERED: meperidine/PF 25mg/ml syringe IV PRN ×3 (14:05)
[2022-10-12] MEDS ORDERED: ringers solution, lacted 1,000 ML IV SCH (14:05)
[2022-10-12] MEDS ORDERED: proCHLORperazine 10 MG/2 ml inj IV PRN (14:05)
[2022-10-12] MEDS ORDERED: ondansetron/PF 4mg/2ml inj IV PRN (14:05)
[2022-10-12] MEDS ORDERED: morphine 4 MG/ML inj SYRINge IV PRN (14:05)
--- NOTE | 2022-10-12 14:20 | NUR ---
Surgeon aware that pt. states the chlorhexidine prep wipes "burn her skin". oked no surgical wash while pt. on surgical floor. Also aware of 3.4 k level.
[2022-10-12] MEDS ORDERED: ceFAZolin 1000mg inj ONE (14:47)
[2022-10-12] MEDS ORDERED: BUPIVAcaine/PF 2.5 mg/ml (0.25%) 30ml vial ONE (14:47)
[2022-10-12] MEDS: albuterol 2.5 MG/3 ML nebule NEB SCH ×2 (14:54→20:17)
[2022-10-12] MEDS ORDERED: sevoflurane 250ml liquid IH ONE (14:55)
[2022-10-12] MEDS ORDERED: dexamethasone sod phosphate 10mg/ml inj ONE (14:55)
--- NOTE | 2022-10-12 15:00 | NUR ---
Pt. taken down to OR for I and D of left and right auxiliary incisions and possible left breast incision.
[2022-10-12] MEDS ORDERED: midazolam 1 mg/ML 2ml injection ONE (15:09)
[2022-10-12] MEDS ORDERED: fentaNYL /PF 50mcg/ml 5ml ampule ONE (15:09)
[2022-10-12] MEDS ORDERED: propofol inj 20 ML IV ONE (15:17)
[2022-10-12] MEDS ORDERED: LIDOcaine 2% (20mg/ml) 5ml vial ONE (15:17)
[2022-10-12] MEDS ORDERED: ondansetron/PF 4mg/2ml inj ONE (15:19)
[2022-10-12] MEDS ORDERED: vancomycin 1,000mg inj ONE ×2 (15:32→15:51)
--- NOTE | 2022-10-12 16:05 | NUR ---
PT ARRIVED FROM THE OR COMBATIVE AND TRYING TO CRAWL OUT OF BED. AFTER ABOUT 5 MINUTES PATIENT CALMED DOWN AND WAS ABLE TO FOLLOW DIRECTIONS, BILAT ABD'S AND MEDIPORE TAPE CD TO BILAT BREAST/AXILLARY, ,MOVING EXT X 4, NO C/O PAIN, PIV RIGHT AC PATENT WITH LR 100 MLS/HR.
--- NOTE | 2022-10-12 16:05 | NUR ---
Received from OR via [g PCS.BED], accompanied by Anesthesiologist [] and report given by Anesthesiolgist.
--- NOTE | 2022-10-12 16:34 | NUR ---
PT'S SBP CONTINUES TO RUN IN THE 180'S. ANESTHESIA NOTIFIED. ORDERS RECEIVED FOR TRANDATE.
[2022-10-12] MEDS: labetalol 20mg/4ml (5mg/ml) syringe IV PRN ×2 (16:47→16:55)
--- NOTE | 2022-10-12 17:05 | NUR ---
Report called to receiving nurse. Transferred via BED Belongings [NO PERSONAL BELONINGS IN PACU) Special Issues communicated to receiving nurse SALOME MORENO. PT IS AWAKE, ALERT, MOVING EXT X 4, ALEKS WATER, NO C/O PAIN, SURGICAL DRESSINGS CD, PIV PATENT, PT MEETS DISCHARGE CRITERIA.
--- NOTE | 2022-10-12 18:23 | NUR ---
Report given to Michael MORENO.
--- NOTE | 2022-10-12 18:44 | NUR ---
Patient in room [facility] 345. I have received report from ANABELLA MORENO and had the opportunity to ask questions and assume patient care. Addendum: 10/12/22 at 1845 by Rosenda Franklin LVN ALE MORENO
--- NOTE | 2022-10-12 18:45 | NUR ---
Patient in room [facility] 345. I have received report from SALOME MORENO and had the opportunity to ask questions and assume patient care.
[2022-10-12] MEDS: RUXOLITINIB PHOSPHATE TOP SCH (19:38)
[2022-10-12] MEDS: budesonide 0.5mg/2ml UD nebule IH SCH (20:17)
[2022-10-13] MEDS: potassium Cl 20 mEq SR tablet PO PRN (00:26)
[2022-10-13] MEDS ORDERED: VANCOMYCIN LEVEL IV ONE (00:30)
[2022-10-13] MEDS: vancomycin/NS 1 GM ADD-VANTAGE 250 ML IV SCH (00:44)
[2022-10-13] MEDS: normal saline 1000ml 1,000 ML IV SCH ×2 (00:45→13:50)
[2022-10-13 01:48] VITALS: BP 139/72
[2022-10-13] MEDS: albuterol 2.5 MG/3 ML nebule NEB SCH ×3 (02:23→15:00)
[2022-10-13] MEDS: piperacillin/tazo 3.375gm/50ml 50 ML IV SCH ×3 (02:25→16:00)
[2022-10-13] MEDS: HYDROcodone/acetaminophen 5mg/325mg tablet PO PRN ×2 (04:40→09:22)
[2022-10-13 05:00] VITALS: BP 146/64
[2022-10-13 05:52] LABS: ALANINE AMINOTRANSFERASE 49 U/L (12-78); ALBUMIN 1.9 G/DL (3.4-5.0); ALBUMIN/GLOBULIN RATIO 0.4 (1.1-1.5); ALKALINE PHOSPHATASE 107 IU/L (46-116); ANION GAP 11 (8-16); ASPARTATE AMINO TRANSFERASE 51 U/L (10-37); BASOPHILS % (AUTO) 0.5 % (0-1); BILIRUBIN,TOTAL 0.2 MG/DL (0.1-1.0); BLOOD UREA NITROGEN 12 MG/DL (7-18); BUN/CREATININE RATIO 11.8 (10.0-20.0); CALCIUM 7.9 MG/DL (8.5-10.1); CHLORIDE 105 MMOL/L (99-107); CREATININE 1.02 MG/DL (0.40-0.90); EOSINOPHILS % (AUTO) 0.5 % (0-6); GLUCOSE 118 MG/DL (70-104); HEMATOCRIT 32.4 % (35.0-45.0); HEMOGLOBIN 10.8 g/dl (12.0-16.0); LYMPHOCYTES # (AUTO) 0.5 X10'3 (1.1-4.8); LYMPHOCYTES % (AUTO) 6.2 % (21-51); MAGNESIUM 1.8 MG/DL (1.5-2.4); MEAN CORPUSCULAR HEMOGLOBIN 33.3 PG (27.0-31.0); MEAN CORPUSCULAR HGB CONC 33.2 g/dL (33.0-36.5); MEAN CORPUSCULAR VOLUME 100.3 FL (78-98); MEAN PLATELET VOLUME 7.2 FL (7.4-10.4); MONOCYTES % (AUTO) 11.9 % (2-12); NEUTROPHILS # (AUTO) 7.1 X10'3 (1.8-7.7); NEUTROPHILS % (AUTO) 80.9 % (42-75); PHOSPHORUS 3.1 MG/DL (2.3-4.5); PLATELET COUNT 336 X10'3 (140-440); POTASSIUM 3.9 MMOL/L (3.5-5.1); RED BLOOD COUNT 3.24 X10'6 (4.20-5.60); RED CELL DISTRIBUTION WIDTH 13.4 % (11.5-14.5); SODIUM 139 MMOL/L (135-145); TOTAL CARBON DIOXIDE 23.2 MMOL/L (24-32); TOTAL PROTEIN 6.2 G/DL (6.4-8.2); WHITE BLOOD COUNT 8.7 X10'3 (4.5-11.0); eGFR 58 ML/MIN
--- NOTE | 2022-10-13 06:05 | NUR ---
Problems reprioritized. Patient report given TO SALOME MORENO, questions answered & plan of care reviewed with .
[2022-10-13] MEDS: K and/or MAG REPLACEMENT MC SCH ×2 (08:00→21:00)
[2022-10-13] MEDS: RUXOLITINIB PHOSPHATE TOP SCH ×2 (08:00→20:00)
[2022-10-13] MEDS: docusate sod 100mg capsule PO SCH ×2 (09:21→21:03)
[2022-10-13] MEDS: heparin, porcine 5000 units/ml vial SQ SCH ×2 (09:22→21:05)
[2022-10-13 10:00] VITALS: BP 155/66
[2022-10-13] MEDS: budesonide 0.5mg/2ml UD nebule IH SCH ×2 (10:33→19:42)
[2022-10-13] MEDS: VANCOmycin 1250MG/NS 250ml Bag 250 ML IV SCH (14:55)
[2022-10-13 18:00] VITALS: BP 183/80
--- NOTE | 2022-10-13 18:14 | NUR ---
Gave report to Carol MORENO.
--- NOTE | 2022-10-13 19:11 | NUR ---
Patient in room [facility]NAZ 345B. I have received report from JOSH MCMAHON and had the opportunity to ask questions and assume patient care.
[2022-10-13 22:00] VITALS: BP 152/66
[2022-10-14] MEDS: VANCOmycin 1250MG/NS 250ml Bag 250 ML IV SCH (00:40)
--- NOTE | 2022-10-14 01:23 | NUR ---
PATIENT REFUSED WOUND CARE STATED THAT WOUND CARE NURSE SAID THEY WOULD SEE HER IN AM Addendum: 10/14/22 at 0125 by Carol Greene RN Amended: Links added.
[2022-10-14] MEDS: normal saline 1000ml 1,000 ML IV SCH ×2 (02:15→09:50)
[2022-10-14] MEDS: piperacillin/tazo 3.375gm/50ml 50 ML IV SCH ×2 (02:57→08:19)
[2022-10-14] MEDS: albuterol 2.5 MG/3 ML nebule NEB SCH ×4 (02:59→20:20)
[2022-10-14 06:00] VITALS: BP 143/64
[2022-10-14 06:27] LABS: BASOPHILS % (AUTO) 0.6 % (0-1); EOSINOPHILS # (AUTO) 0.4 X10'3 (0-0.9); EOSINOPHILS % (AUTO) 5.8 % (0-6); HEMATOCRIT 33.6 % (35.0-45.0); HEMOGLOBIN 10.9 g/dl (12.0-16.0); LYMPHOCYTES # (AUTO) 0.7 X10'3 (1.1-4.8); LYMPHOCYTES % (AUTO) 10.9 % (21-51); MEAN CORPUSCULAR HEMOGLOBIN 33.3 PG (27.0-31.0); MEAN CORPUSCULAR HGB CONC 32.5 g/dL (33.0-36.5); MEAN CORPUSCULAR VOLUME 102.6 FL (78-98); MEAN PLATELET VOLUME 7.2 FL (7.4-10.4); MONOCYTES # (AUTO) 0.9 X10'3 (0-0.9); NEUTROPHILS # (AUTO) 4.6 X10'3 (1.8-7.7); NEUTROPHILS % (AUTO) 69.7 % (42-75); PLATELET COUNT 322 X10'3 (140-440); RED BLOOD COUNT 3.28 X10'6 (4.20-5.60); RED CELL DISTRIBUTION WIDTH 14.1 % (11.5-14.5); WHITE BLOOD COUNT 6.6 X10'3 (4.5-11.0)
--- NOTE | 2022-10-14 06:54 | NUR ---
Problems reprioritized. Patient report given, questions answered & plan of care reviewed with JOSH MCMAHON.
[2022-10-14 06:58] LABS: ALANINE AMINOTRANSFERASE 39 U/L (12-78); ALBUMIN/GLOBULIN RATIO 0.5 (1.1-1.5); ALKALINE PHOSPHATASE 96 IU/L (46-116); ANION GAP 10 (8-16); BILIRUBIN,TOTAL 0.2 MG/DL (0.1-1.0); BLOOD UREA NITROGEN 7 MG/DL (7-18); BUN/CREATININE RATIO 5.8 (10.0-20.0); CALCIUM 8.3 MG/DL (8.5-10.1); CHLORIDE 110 MMOL/L (99-107); CREATININE 1.21 MG/DL (0.40-0.90); GLUCOSE 98 MG/DL (70-104); MAGNESIUM 2.2 MG/DL (1.5-2.4); SODIUM 139 MMOL/L (135-145); TOTAL CARBON DIOXIDE 18.7 MMOL/L (24-32); TOTAL PROTEIN 6.1 G/DL (6.4-8.2); eGFR 47 ML/MIN
[2022-10-14 07:00] LABS: ASPARTATE AMINO TRANSFERASE 42 U/L (10-37); PHOSPHORUS 3.9 MG/DL (2.3-4.5); POTASSIUM 4.3 MMOL/L (3.5-5.1)
[2022-10-14] MEDS: K and/or MAG REPLACEMENT MC SCH ×2 (08:00→20:00)
[2022-10-14] MEDS: docusate sod 100mg capsule PO SCH ×2 (08:00→20:00)
[2022-10-14] MEDS: heparin, porcine 5000 units/ml vial SQ SCH ×3 (08:00→20:00)
[2022-10-14] MEDS: diphenhydrAMINE 25mg capsule PO PRN (08:19)
[2022-10-14] MEDS: RUXOLITINIB PHOSPHATE TOP SCH ×2 (08:19→20:02)
[2022-10-14] MEDS: budesonide 0.5mg/2ml UD nebule IH SCH ×2 (08:34→20:20)
--- NOTE | 2022-10-14 08:38 | NUR ---
pT. REFUSING FOR BANDAGES TO BE CHANGED. STATES WOUND CARE TOLD HER THEY WERE GOING TO DO IT DAILY.
[2022-10-14] MEDS ORDERED: albuterol 2.5 MG/3 ML nebule NEB PRN (09:05)
[2022-10-14 10:00] VITALS: BP 164/83
--- NOTE | 2022-10-14 11:44 | NUR ---
CALLED OR FOR ANOTHER CHEST ELASTIC BANDAGE. THEY WILL RETURN CALL- LOOKING FOR ONE.
--- NOTE | 2022-10-14 11:45 | NUR ---
WOUND CARE COMPLETED AFTER CLARIFIED WITH WOUND CARE THAT NURSING ABLE TO CHANGE DRESSINGS. PT IS AWARE. DRESSINGS WITH COPIOUS PURULENT DRAINAGE. CALLED MD ONCOLOGIST. PIV ALSO COMING OUT R/T TAPE /DRESSING WONT STICK TO PT'S SKIN. AWARE AND OK TO LEAVE PIV OUT
[2022-10-14] MEDS: cephalexin 500mg capsule PO SCH ×2 (16:23→20:01)
[2022-10-14] MEDS: DOXYCYCLINE 100MG CAPSULE PO SCH (17:13)
--- NOTE | 2022-10-14 17:22 | NUR ---
Oncologist originally want ed pt. f/u wound care to be at [facility] wound clinic, but then oked pt. to f/u here at [facility] wound clinic as long as she has a f/u wound clinic appointment and home health arranged before discharge. Spoke with CM briefly about it and then update CM by page at end of shift. Called OP wound care clinic as well and notified them by VM to call primary RN in AM to arrange appointment.
[2022-10-14 18:00] VITALS: BP 164/68
--- NOTE | 2022-10-14 18:32 | NUR ---
Gave report to Lisa MORENO.
[2022-10-14 22:00] VITALS: BP 164/82
[2022-10-15] MEDS ORDERED: vancomycin/NS 1 GM ADD-VANTAGE 250 ML IV SCH (01:00)
[2022-10-15] MEDS: cephalexin 500mg capsule PO SCH ×3 (01:31→13:42)
[2022-10-15] MEDS: albuterol 2.5 MG/3 ML nebule NEB SCH ×2 (02:11→08:37)
[2022-10-15 06:00] VITALS: BP 155/79
--- NOTE | 2022-10-15 06:42 | NUR ---
Patient in room [facility] 345. I have received report from OJSH QUINTANA and had the opportunity to ask questions and assume patient care.
[2022-10-15 07:33] LABS: BASOPHILS % (AUTO) 0.6 % (0-1); EOSINOPHILS # (AUTO) 0.5 X10'3 (0-0.9); HEMATOCRIT 33.9 % (35.0-45.0); HEMOGLOBIN 11.3 g/dl (12.0-16.0); LYMPHOCYTES % (AUTO) 12.7 % (21-51); MEAN CORPUSCULAR HEMOGLOBIN 33.1 PG (27.0-31.0); MEAN CORPUSCULAR HGB CONC 33.2 g/dL (33.0-36.5); MEAN CORPUSCULAR VOLUME 99.6 FL (78-98); MONOCYTES % (AUTO) 12.8 % (2-12); NEUTROPHILS # (AUTO) 5.4 X10'3 (1.8-7.7); NEUTROPHILS % (AUTO) 67.9 % (42-75); PLATELET COUNT 392 X10'3 (140-440); RED CELL DISTRIBUTION WIDTH 13.7 % (11.5-14.5)
[2022-10-15 07:59] LABS: ALANINE AMINOTRANSFERASE 37 U/L (12-78); ALBUMIN 2.2 G/DL (3.4-5.0); ALBUMIN/GLOBULIN RATIO 0.5 (1.1-1.5); ALKALINE PHOSPHATASE 95 IU/L (46-116); ANION GAP 12 (8-16); ASPARTATE AMINO TRANSFERASE 31 U/L (10-37); BILIRUBIN,TOTAL 0.2 MG/DL (0.1-1.0); BLOOD UREA NITROGEN 5 MG/DL (7-18); BUN/CREATININE RATIO 4.3 (10.0-20.0); CHLORIDE 108 MMOL/L (99-107); CREATININE 1.15 MG/DL (0.40-0.90); GLUCOSE 89 MG/DL (70-104); MAGNESIUM 1.9 MG/DL (1.5-2.4); PHOSPHORUS 4.9 MG/DL (2.3-4.5); POTASSIUM 3.6 MMOL/L (3.5-5.1); SODIUM 142 MMOL/L (135-145); TOTAL CARBON DIOXIDE 22.3 MMOL/L (24-32); TOTAL PROTEIN 6.6 G/DL (6.4-8.2); eGFR 50 ML/MIN
[2022-10-15] MEDS: docusate sod 100mg capsule PO SCH ×2 (08:00→08:09)
[2022-10-15] MEDS: K and/or MAG REPLACEMENT MC SCH (08:00)
[2022-10-15] MEDS: RUXOLITINIB PHOSPHATE TOP SCH (08:00)
[2022-10-15] MEDS: heparin, porcine 5000 units/ml vial SQ SCH (08:00)
[2022-10-15] MEDS: DOXYCYCLINE 100MG CAPSULE PO SCH (08:10)
[2022-10-15] MEDS: budesonide 0.5mg/2ml UD nebule IH SCH (08:37)
[2022-10-15 11:50] VITALS: BP 178/80
--- NOTE | 2022-10-15 12:02 | NUR ---
Message: [id number]- VENITA ORTIZ- BP 178/88 HR 59. RECHECK 179/97 HR 56. DENIES PAIN.- [id number]
[2022-10-15] MEDS ORDERED: cloNIDine 0.1 mg tablet PO ONE (12:05)
[2022-10-15 12:54] VITALS: BP 158/81
[2022-10-15] MEDS ORDERED: CEPH-585 PO (12:55)
[2022-10-15] MEDS ORDERED: HYDR-3965 PO (12:55)
[2022-10-15] MEDS ORDERED: DOXY-224 PO (12:55)
[2022-10-15] MEDS ORDERED: LACT1CAP26 PO (12:55)
[2022-10-15] MEDS ORDERED: AMLO5TAB16 PO (12:58)
--- NOTE | 2022-10-15 13:15 | NUR ---
Patient aware she has outpatient wound care appointment for Thursday10/17/22 at 0930.
--- NOTE | 2022-10-15 13:57 | NUR ---
Patient alert and oriented with no s/s of apparent acute distress. Discussed with patient dc instructions and new prescriptions. Patient verbalizes understanding of teaching with no questions. Patient understands to follow up with MD and wound care as directed. Patient dc'd with all personal belongings escorted oout in wheelchair by [facility] staff. Patient states her car is here and will be driving self home.
--- NOTE | 2022-10-15 19:10 | NUR ---
GENERALIST documentation: I have reviewed and agree with all interventions, assessments performed and documented by Alia SANFORD. No new findings noted.
[2022-10-18] MEDS ORDERED: VANCOMYCIN LEVEL IV ONE (00:30)
== END 2022-10-15 14:00 | disposition home health service (06) | DRG 721 ==
LOC: ER 10:25 → SUR 3N 11:53
PROVIDERS: ADMIT Family Medicine; ATTEND Family Medicine
PROC: 0X950ZZ Drainage of Left Axilla, Open Approach (ICD-10-PCS; 2022-10-12)
PROC: 0H9U0ZZ Drainage of Left Breast, Open Approach (ICD-10-PCS; 2022-10-12)
PROC: 0X940ZZ Drainage of Right Axilla, Open Approach (ICD-10-PCS; principal; 2022-10-12 14:55)
DX: T81.40XA Infection following a procedure, unspecified, initial encounter (principal); N17.9 Acute kidney failure, unspecified; T81.30XA Disruption of wound, unspecified, initial encounter; L03.115 Cellulitis of right lower limb; D72.829 Elevated white blood cell count, unspecified; F17.210 Nicotine dependence, cigarettes, uncomplicated; L02.411 Cutaneous abscess of right axilla; L03.116 Cellulitis of left lower limb; I10 Essential (primary) hypertension; G89.29 Other chronic pain; M54.9 Dorsalgia, unspecified; L20.9 Atopic dermatitis, unspecified; Y83.8 Other surgical procedures as the cause of abnormal reaction of the patient, or of later complication, without mention of misadventure at the time of the procedure; R59.9 Enlarged lymph nodes, unspecified; N61.1 Abscess of the breast and nipple; J44.9 Chronic obstructive pulmonary disease, unspecified; Y92.89 Other specified places as the place of occurrence of the external cause; Z88.2 Allergy status to sulfonamides; Z80.0 Family history of malignant neoplasm of digestive organs; Z88.8 Allergy status to other drugs, medicaments and biological substances; Z79.899 Other long term (current) drug therapy; Z17.0 Estrogen receptor positive status [ER+]; Z85.3 Personal history of malignant neoplasm of breast
CPT/HCPCS: 36415; 71045; 80053; 80061; 80202; 82948; 83036; 83605; 83735; 84100; 84145; 85025; 85730; 86885; 86900; 86901; 87040; 87070; 87075; 87077; 87081; 87186; 93005; 94640; 94760; 99285; A4618; A6213; A6253; A6258; A6266; A6449; G0378; J0690; J1100; J1644; J2250; J2270; J2405; J2543; J2704; J3010; J3370; J3490; J7030; Q0163

== ENCOUNTER 2022-11-02 07:46 | Emergency (ER) | payer MEDICAID ==
[~2022-11-02] VITALS: Ht 160 cm; Wt 59.1 kg
[~2022-11-02 07:46] MED LIST changes: +AMLO5TAB16 PO; +CEPH-585 PO; +DOXY-224 PO; +HYDR-3965 PO; +LACT1CAP26 PO
[2022-11-02 07:55] VITALS: BP 236/119
--- NOTE | 2022-11-02 08:33 | NUR ---
PER DR POTTER PT IS OKAY TO WAIT IN LOBBY FOR CT SCAN
[2022-11-02] MEDS ORDERED: LEVO-65 PO (10:00)
== END 2022-11-02 10:36 | disposition home or self-care (01) ==
LOC: ER 07:46
DX: N61.1 Abscess of the breast and nipple (principal); J45.909 Unspecified asthma, uncomplicated; G89.29 Other chronic pain; M54.9 Dorsalgia, unspecified; Z88.2 Allergy status to sulfonamides; Z88.8 Allergy status to other drugs, medicaments and biological substances; Z79.899 Other long term (current) drug therapy
CPT/HCPCS: 71250; 99284

== ENCOUNTER 2023-02-02 06:51 | Day surgery (SDC) | payer MEDICAID ==
[~2023-02-02] VITALS: Ht 160 cm; Wt 55.8 kg
[~2023-02-02 06:51] MED LIST changes: -HYDR-3965 PO
[2023-02-02] MEDS ORDERED: IPRA3AMP31 NEB (07:18)
[2023-02-02] MEDS ORDERED: BUDE10.2 (07:18)
[2023-02-02] MEDS ORDERED: KEN0.1O (07:20)
[2023-02-02 07:30] VITALS: BP 144/71; PULSE 67; RESP 16; TEMP 98; O2SAT 96
[2023-02-02 09:30] VITALS: BP 148/82; PULSE 87; RESP 16; O2SAT 98
[2023-02-02] MEDS ORDERED: LIDOcaine 1%/PF 5ML 10 MG/ML VIAL SQ STA (09:41)
[2023-02-02 09:45] VITALS: BP 150/87; PULSE 85; RESP 18; O2SAT 99
[2023-02-02 09:52] VITALS: BP 158/97; PULSE 87; RESP 16; O2SAT 98
== END 2023-02-02 10:05 | disposition home or self-care (01) ==
LOC: SSTAY O 06:51
PROVIDERS: ATTEND Radiology Vascular & Interventional Radiology
DX: R59.0 Localized enlarged lymph nodes (principal); C50.412 Malignant neoplasm of upper-outer quadrant of left female breast; Z88.8 Allergy status to other drugs, medicaments and biological substances; Z88.2 Allergy status to sulfonamides; Z72.89 Other problems related to lifestyle; Z79.899 Other long term (current) drug therapy
CPT/HCPCS: 38505; 76942; J3490